=== PATIENT | female | born 1975 | race Caucasian/White ===

== ENCOUNTER 2023-11-03 09:15 | Outpatient (CLI) | payer MEDICAID, SELFPAY ==
--- NOTE | 2023-11-03 09:20 | USR_ITS ---
PROCEDURE INFORMATION: Exam: US Abdomen Complete Exam date and time: 11/03/2023 9:29 AM Age: 48 years old Clinical indication: Screening exam; Other: Palp area; Additional info: Subcutaneous nodule TECHNIQUE: Imaging protocol: Real-time ultrasound of the abdomen with image documentation. Complete exam. COMPARISON: No relevant prior studies available. FINDINGS: Liver: The liver measures 16.4 cm in the midclavicular plane. No mass. The liver demonstrates increased echogenicity with decreased visualization of periportal fat without sound attenuation. Gallbladder: Normal. No gallstones. There is no gallbladder wall thickening. Biliary ducts: The common bile duct measures 0.4 mm. No ductal calculi as visualized. Pancreas: The pancreas head and neck are unremarkable. The remainder of the gland is obscured by bowel gas. Right kidney: The right kidney measures 10.9 x 4.7 x 4.0 cm. Unremarkable. Left kidney: The left kidney measures 11.8 x 4.6 x 5.4 cm. Unremarkable. Spleen: The spleen measures 9.9 x 4.6 x 5.3 cm. Unremarkable. Soft tissues: Soft tissue imaging in the region of interest (right) demonstrates a mildly hyperechoic noncalcified subcutaneous lesion measuring 2.5 x 1.2 x 1.8 cm. No color Doppler hypervascularity. A 2nd similar focus (left) is identified measuring 1.8 x 1.2 x 1.8 cm. Aorta: The proximal abdominal aorta measures 1.7 cm. Inferior vena cava: Unremarkable upper abdominal IVC. US/US abdomen complete* [id number] IMPRESSION: 1. Two subcutaneous foci in the bilateral anterior abdominal wall, likely representing benign soft tissue lipomas. 2. Otherwise, no acute abdominal abnormality identified. 3. Fatty infiltration of the liver.
== END 2023-11-03 09:16 | disposition home or self-care (01) ==
LOC: RAD 09:17
PROVIDERS: PCP Family Medicine; Visit Provider Family Medicine
DX: R22.9 Localized swelling, mass and lump, unspecified (principal)
CPT/HCPCS: 76700

== ENCOUNTER 2023-11-17 11:04 | Outpatient (CLI) | payer MEDICAID, SELFPAY ==
--- NOTE | 2023-11-17 11:09 | MM_ITS ---
WS: [id number] BILATERAL 3D TOMOSYNTHESIS DIGITAL SCREENING MAMMOGRAPHY WITH CAD CLINICAL INFORMATION: SCREEN HISTORY: Screening mammogram. No current complaints. COMPARISON: 2021 TECHNIQUE: Bilateral CC and MLO views. FINDINGS: The breasts are composed of heterogeneous fibroglandular density tissue, which can limit the detectio n of small underlying mass lesions. No suspicious mass, asymmetry, calcifications, or architectural d istortion. No evidence of malignancy. Incidental punctate and lucent centered calcifications. IMPRESSION: MM/[place] [id number] BI-RADS: 2-Benign FOLLOW UP: 1 Year Follow-up Recommend return to annual screening mammography.
== END 2023-11-17 11:05 | disposition home or self-care (01) ==
LOC: RAD 11:04
PROVIDERS: Visit Provider Family Medicine
DX: Z12.31 Encounter for screening mammogram for malignant neoplasm of breast (principal)
CPT/HCPCS: 77063; 77067

== ENCOUNTER 2023-12-11 17:57 | Emergency (ER) | payer MEDICAID, SELFPAY ==
[2023-12-11 18:44] VITALS: BP 156/96; PULSE 84; RESP 15; TEMP 37.9; O2SAT 94; BMI 29.2
[2023-12-11 20:21] LABS: Basophils % 0.4 %; Eosinophils # 0.3 10^3/uL (0.0-0.8); Eosinophils % 3.4 %; Hematocrit 40.6 % (36-47); Lymphocytes # 3.2 10^3/uL (0.8-4.8); Lymphocytes % 33.1 %; Mean Corpuscular Hemoglobin 29.2 pg (27-33); Mean Corpuscular Volume 85.8 fl (85-98); Mean Platelet Volume 9.2 fL (7.4-10.4); Monocytes # 0.8 10^3/uL (0.2-0.9); Monocytes % 8.1 %; Neutrophils # 5.28 10^3/uL (1.8-7.7); Neutrophils % 54.9 %; Nucleated Red Blood Cells % 0 %; Platelet Count 307 10^3/cmm (157-399); Red Blood Count 4.73 10^6/uL (3.85-5.65); Red Cell Distribution Width 13.4 % (12.1-15.1); White Blood Count 9.63 10^3/uL (3.29-11.43)
[2023-12-11 20:41] LABS: Alanine Aminotransferase 25 U/L (0-33); Albumin Level 4.2 g/dL (3.5-5.2); Alkaline Phosphatase 120 U/L (35-105); Anion Gap 15.1 (5-19); Aspartate Amino Transferase 18 U/L (0-32); Blood Urea Nitrogen 20 mg/dL (6-20); Calcium 9.5 mg/dL (8.5-10.5); Carbon Dioxide 24 mmol/L (22-29); Chloride 105 mmol/L (98-107); Globulin 2.9 g/dL (1.3-4.6); Glomerular Filtration Rate 88.9 mL/min (90-130); Glucose 133 mg/dL (65-115); Osmolality Calculated 295 mOsm/kg (285-295); Potassium 4.1 mmol/L (3.5-5.1); Sodium 140 mmol/L (136-145); Total Bilirubin 0.2 mg/dL (0.15-1.2); Total Protein 7.1 g/dL (6.6-8.7)
[2023-12-11 20:43] LABS: HCG, Serum Qual Negative (Negative)
--- NOTE | 2023-12-11 20:47 | USR_ITS ---
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 Not taking hormones. Only surgery = tubal lig 1999; Additional info: Post menopausal vaginal bleeding TECHNIQUE: Imaging protocol: Real-time complete transabdominal and transvaginal pelvic ultrasound with image documentation. Transvaginal imaging was used for better evaluation of the endometrium, adnexa, and/or cervix. COMPARISON: US abdomen complete* [id number] 11/03/2023 9:29 AM FINDINGS: Uterus: Uterus measures 8.1 cm x 4.6 cm x 4.1 cm. The endometrial stripe measures 10 mm. Three uterine fibroids, largest is 2 x 0.9 x 1 cm. The endometrial stripe measures 10 mm. Right ovary/adnexa: Right ovary measures 1.9 cm x 2.1 cm x 1.2 cm. Right ovarian volume is 2.6 mL. Normal right ovarian blood flow. Left ovary/adnexa: Left ovary measures 1.9 cm x 1.9 cm x 1.2 cm. Left ovarian volume is 2.3 mL. Normal left ovarian blood flow. Intraperitoneal space: No intraperitoneal fluid. Urinary bladder: Normal. US/US pelvic complete* [id number] IMPRESSION: 1. Three uterine fibroids, largest is 2 x 0.9 x 1 cm. 2. The endometrial stripe measures 10 mm.
--- NOTE | 2023-12-11 20:50 | ED_ITS ---
HPI - Female Genitourinary 2 General: Chief complaint: Vaginal Bleeding Stated complaint: vaginal bleeding Time Seen by Provider: 12/11/23 20:44 History of Present Illness: Patient presents to the ER with complaints of heavy vaginal bleeding. Patient states she has not had a period since 2013 but within the last 24 hours it feels like she started her period with heavy vaginal bleeding that required 1 super tampon every hour and 1 super pad every hour. Patient called her PCP who told her to come in to be evaluated. Patient denies any nausea vomiting fevers chills but does say she has low pelvic cramps and back pain. Review of Systems 2 General: Reports: 10 or more systems reviewed and unremarkable except in HPI and below Physical Exam 2 Const: COMMON NORMALS: no acute distress, average body habitus, patient oriented x3, no limitations, healthy appearing, alert and well nourished HENMT: COMMON NORMALS: normocephalic, atraumatic, hearing grossly normal bilaterally, external ears normal, Normal external nose present, moist oral mucous membranes and oropharynx normal HEAD & SCALP: normocephalic and atraumatic NOSE: Normal external nose present EXTERNAL EAR: Yes external ears normal Neck/C-Spine: COMMON NORMALS: no JVD Chest: COMMONS NORMALS: normal inspection of the chest and normal palpation of entire chest wall Resp: COMMON NORMALS: normal respiratory effort, No retractions, No use of accessory muscles and clear to auscultation bilaterally AUSCULTATION: clear to auscultation bilaterally Cardio: COMMON NORMALS: no JVD, regular rate, regular rhythm, S1 normal heart sound present, S2 normal heart sound present, No gallops present (Cardio), No clicks present (Cardio), No murmurs present (Cardio) and No rub (Cardio) R ATE: regular rate RHYTHM: regular rhythm HEART SOUNDS: S1 normal heart sound present and S2 normal heart sound present GI: COMMON NORMALS: Normal to inspection, nondistended, normoactive bowel sounds present, Soft to palpation, non-tender, No hepatosplenomegaly present and no masses PALPATION: Yes Soft to palpation and Yes No hepatosplenomegaly present Neuro: COMMON NORMALS: patient oriented x3 SENSORIUM/ORIENTATION: Yes alert Course 2 Vital Signs: Vital signs: Vital Signs Temperature 100.2 F H 12/11/23 18:44 Pulse Rate 76 12/11/23 23:14 Respiratory Rate 15 12/11/23 18:44 Blood Pressure 121/72 12/11/23 23:14 Pulse Oximetry 97 12/11/23 23:14 Oxygen Delivery Me thod Room Air 12/11/23 18:44 MDM - Female Medical Decision Making Physical dam was performed lab work was obtained as well as pelvic ultrasound. These were essentially unremarkable except for the pelvic ultrasound showed 3 uterine fibroids and endometrial stripe measuring 10 mm. These results was discussed with the patient will be discharged from the emergency room and instructed to follow-up with her [facility] for definitive treatment. Differential Diagnosis Unlikely abdominal pain, acute appendicitis, calculus of kidney, constipation, diverticulitis, endometriosis, gastroenteritis, pancreatitis or small bowel obstruction Medical Records I reviewed the patient's medical records. Lab Data I reviewed the patient's lab results. 12/11/23 20:00 12/11/23 20:00 Radiology Impressions Pelvis Ultrasound 12/11/23 20:47 IMPRESSION: 1. Three uterine fibroids, largest is 2 x 0.9 x 1 cm. 2. The endometrial stripe measures 10 mm. Laboratory Results WBC 9.63 10^3/uL (3.29-11.43) 12/11/23 20:00 RBC 4.73 10^6/uL (3.85-5.65) 12/11/23 20:00 Hgb 13.80 g/dL (11.27-16.99) 12/11/23 20:00 Hct 40.6 % (36-47) 12/11/23 20:00 MCV 85.8 fl (85-98) 12/11/23 20:00 MCH 29.2 pg (27-33) 12/11/23 20:00 MCHC 34.0 g/dL (30-55) 12/11/23 20:00 RDW 13.4 % (12.1-15.1) 12/11/23 20:00 Plt Count 307 10^3/cmm (157-399) 12/11/23 20:00 MPV 9.2 fL (7.4-10.4) 12/11/23 20:00 Neut % (Auto) 54.9 % 12/11/23 20:00 Lymph % (Auto) 33.1 % 12/11/23 20:00 [place] % (Auto) 8.1 % 12/11/23 20:00 Eos % (Auto) 3.4 % 12/11/23 20:00 Baso % (Auto) 0.4 % 12/11/23 20:00 Neut # (Auto) 5.28 10^3/uL (1.8-7.7) 12/11/23 20:00 Lymph # (Auto) 3.2 10^3/uL (0.8-4.8) 12/11/23 20:00 [place] # (Auto) 0.8 10^3/uL (0.2-0.9) 12/11/23 20:00 Eos # (Auto) 0.3 10^3/uL (0.0-0.8) 12/11/23 20:00 Baso # (Auto) 0.0 10^3/uL (0.0-0.1) 12/11/23 20:00 Nucleated RBC % (auto) 0 % 12/11/23 20:00 Nucleated RBCs # 0.0 /100WBC 12/11/23 20:00 Sodium 140 mmol/L (136-145) 12/11/23 20:00 Potassium 4.1 mmol/L (3.5-5.1) 12/11/23 20:00 Chloride 105 mmol/L (98-107) 12/11/23 20:00 Carbon Dioxide 24 mmol/L (22-29) 12/11/23 20:00 Anion Gap 15.1 (5-19) 12/11/23 20:00 BUN 20 mg/dL (6-20) 12/11/23 20:00 Creatinine 0.7 mg/dL (0.5-0.9) 12/11/23 20:00 GFR Calculation 88.9 mL/min (90-130) L 12/11/23 20:00 Glucose 133 mg/dL (65-115) H 12/11/23 20:00 Calculated Osmolality 295 mOsm/kg (285-295) 12/11/23 20:00 Calcium 9.5 mg/dL (8.5-10.5) 12/11/23 20:00 Total Bilirubin 0.2 mg/dL (0.15-1.2) 12/11/23 20:00 AST 18 U/L (0-32) 12/11/23 20:00 ALT 25 U/L (0-33) 12/11/23 20:00 Alkaline Phosphatase 120 U/L (35-105) H 12/11/23 20:00 Total Protein 7.1 g/dL (6.6-8.7) 12/11/23 20:00 Albumin 4.2 g/dL (3.5-5.2) 12/11/23 20:00 Globulin 2.9 g/dL (1.3-4.6) 12/11/23 20:00 HCG, Qual Negative (Negative) 12/11/23 20:00 All radiology interpretation(s) finalized by discharge Discharge Plan Discharge Patient Disposition: Home Condition: Stable Prescriptions: No Action azithromycin 250 mg tablet See Rx Instructions PO .COMPLEX Qty: 6 0RF Rx Instructions: take 500 mg today (day 1), then 250 mg for 4 days (days 2-5) PO prednisone 20 mg tablet 20 mg PO DAILY 5 Days Qty: 5 0RF albuterol sulfate [Ventolin HFA] 90 mcg/actuation HFA aerosol inhaler 2 puff inhalation Q6H PRN (Reason: shortness of breath or wheezing) Qty: 8.5 0RF Discharge Orders: Discharge ED (Routine); Ordered 12/11/23 Ordered By: Eliazar Alonso Referrals: Amaya Cartagena DO [Primary Care Provider] - 1 week Patient Instructions: Uterine Fibroids (ED) Activity Restrictions/Additional Instructions: The blood work you had performed in ER was unremarkable, they pelvic ultrasound showed you have uterine fibroids. This is more than likely the cause for your bleeding. Please follow-up with your [facility] for definitive treatment. Coding Level of Care Code ED Director Client Services for Celena Pike
[2023-12-11 22:01] VITALS: PULSE 86; O2SAT 97
[2023-12-11 22:20] VITALS: BP 150/92; PULSE 78; O2SAT 96
[2023-12-11 23:14] VITALS: BP 121/72; PULSE 76; O2SAT 97
== END 2023-12-11 23:17 | disposition home or self-care (01) ==
PROVIDERS: Emergency Medicine; Emergency Provider Emergency Medicine; PCP Family Medicine
DX: N93.9 Abnormal uterine and vaginal bleeding, unspecified (principal)
CPT/HCPCS: 36415; 76856; 80053; 84703; 85025; 99284

== ENCOUNTER → 2024-01-25 10:43 | Outpatient (BNVA) | payer MEDICAID, SELFPAY | PROVIDERS: PCP Family Medicine; Referring Provider Family Medicine; Visit Provider Obstetrics & Gynecology | DX: N95.0 Postmenopausal bleeding (principal); D25.9 Leiomyoma of uterus, unspecified; D25.0 Submucous leiomyoma of uterus; N84.1 Polyp of cervix uteri | CPT/HCPCS: 83001; 84443; 85025; 88305 ==

== ENCOUNTER 2024-04-09 12:22 | Observation (INO) | payer MEDICAID, SELFPAY ==
--- NOTE | 2024-04-08 09:02 | P.ANESASSM_ITS ---
Pre-Anesthetic Assessment Height/Weight: Height 1.63 m Operation Date: 04/09/24 07:00 Proposed Procedures p Total Vaginal Hysterectomy 72322, N95.0, D25.9(Not Applicable) - Porfirio Rajput MD s Salpingo-Oophorectomy (Vaginal)(Bilateral) - Porfirio Rajput MD Familial anesthetic complications: None Was Beta Mariano taken within 24 hours: N/A Was Clonidine taken within 24 hours: N/A Last intake: > 8hrs Social Tobacco and No alcohol Exam alert, oriented x 3, clear to auscultation bilaterally and regular rate & rhythm Airway Mallampati: Class II Dentition: false Metabolic Hyperlipidemia Anesthetic Plan ASA status: 2 Anesthesia: General Risk of > 500 ml blood loss (7ml/kg in children): No Medications/Allergies Home Medications Medication Instructions Recorded Confirmed Last Taken Type albuterol sulfate 90 mcg/actuation 2 puff inhalation Q6H PRN 10/02/23 04/08/24 Unknown Rx aerosol inhaler (Ventolin HFA) shortness of breath or wheezing #8.5 grams aspirin 500 mg-acetaminophen 325 1 ea PO PRN PRN pain 04/08/24 04/08/24 04/07/24 History mg-caffeine 65 mg oral powder pack buspirone 10 mg tablet 10 mg PO TID 04/08/24 04/08/24 04/08/24 History fluoxetine 40 mg capsule 40 mg PO DAILY 04/08/24 04/08/24 04/08/24 History simvastatin 40 mg tablet 40 mg PO DAILY 04/08/24 04/08/24 04/08/24 History Allergies Allergy/AdvReac Type Severity Reaction Status Date / Time tramadol [From [facility]] Allergy ADR-Itching Verified 04/08/24 08:03 [facility] Anesthesia Family History Mother Diabetes Hypertension Thyroid disease Hypercholesteremia Father Heart disease Hypercholesteremia Brother Hypercholesteremia Grandmother Hypercholesteremia Grandfather Hypercholesteremia Denies family history of Colon cancer Ovarian cancer Prostate cancer Breast cancer Uterine cancer Stroke Data Anesthesia Cardiac Studies: No Data to Display
[2024-04-09] VITALS (20 sets, daily range): BP systolic 104–157; BP diastolic 65–92; PULSE 64–83; RESP 9–18; TEMP 36.1–36.9; O2SAT 92–98; BMI 36.2
[2024-04-09] MEDS: sodium chloride 0.9% 500 ML IV (06:32)
[2024-04-09] MEDS: scopolamine 1.5 Patch 1 PATCH TRANSDERMA (06:32)
[2024-04-09 06:35] LABS: Basophils # 0.1 10^3/uL (0.0-0.1); Basophils % 0.7 %; Eosinophils # 0.3 10^3/uL (0.0-0.8); Eosinophils % 3.1 %; Hematocrit 42.8 % (36-47); Lymphocytes # 2.8 10^3/uL (0.8-4.8); Lymphocytes % 33.5 %; Mean Corpuscular HGB Conc 33.2 g/dL (30-55); Mean Corpuscular Hemoglobin 28.7 pg (27-33); Mean Corpuscular Volume 86.5 fl (85-98); Mean Platelet Volume 9.5 fL (7.4-10.4); Monocytes # 0.8 10^3/uL (0.2-0.9); Monocytes % 9.3 %; Neutrophils # 4.42 10^3/uL (1.8-7.7); Neutrophils % 53.3 %; Nucleated Red Blood Cells % 0 %; Platelet Count 291 10^3/cmm (157-399); Red Blood Count 4.95 10^6/uL (3.85-5.65); Red Cell Distribution Width 13.9 % (12.1-15.1)
[2024-04-09 06:43] LABS: OR HCG Qualitative Urine Negative (Negative)
--- NOTE | 2024-04-09 06:49 | P.ANESUD_ITS ---
Pre-Anesthetic Update Pre-Anesthetic Assessment: Date of Surgery/Procedure: 04/09/24 Preop Jeanne gnosis: Postmenopausal bleeding, uterine fibroid, endocervical polyp Proposed Procedure: Operation Date: 04/09/24 07:00 Proposed Procedures p Total Vaginal Hysterectomy 00383, N95.0, D25.9(Not Applicable) - Porfirio Rajput MD s Salpingo-Oophorectomy (Vaginal)(Bilateral) - Porfirio Rajput MD Any changes to Pre-Anesthetic Assessment?: No Last Intake: Intake Last Liquid Date 04/08/24 Last Liquid Time 22:00 Last Solid Date 04/08/24 Last Solid Time 20:00 Labs Last 48hrs: Short CBC 04/09/24 Range/Units 06:20 WBC 8.30 (3.29-11.43) 10^ 3/uL Hgb 14.20 (11.27-16.99) g/ dL Hct 42.8 (36-47) % MCV 86.5 (85-98) fl Plt Count 291 (157-399) 10^3/c mm Neut % (Auto) 53.3 % Neut # (Auto) 4.42 (1.8-7.7) 10^3/u L Vitals: Temperature 97 F L 04/09/24 06:04 Temperature Source Temporal Artery S can 04/09/24 06:04 Pulse Rate 64 04/09/24 06:04 Respiratory Rate 18 04/09/24 06:04 Blood Pressure 157/89 04/09/24 06:04 Blood Pressure Selena n 111 04/09/24 06:04 Pulse Oximetry 97 04/09/24 06:04 Oxygen Delivery Me thod Room Air 04/09/24 06:06 Exam: Pre-Anes Outpt Exam: alert, oriented x 3, clear to auscultation bilate rally and regular rate & rhythm Cardiac Studies: No Data to Display
[2024-04-09 06:52] LABS: Albumin Level 4.3 g/dL (3.5-5.2); Alkaline Phosphatase 117 U/L (35-105); Anion Gap 15.3 (5-19); Aspartate Amino Transferase 21 U/L (0-32); Blood Urea Nitrogen 17 mg/dL (6-20); Calcium 8.6 mg/dL (8.5-10.5); Carbon Dioxide 25 mmol/L (22-29); Chloride 104 mmol/L (98-107); Creatinine Clr Calc Pharmacy 109.1237; Globulin 2.8 g/dL (1.3-4.6); Glomerular Filtration Rate 88.9 mL/min (90-130); Glucose 121 mg/dL (65-115); Osmolality Calculated 293 mOsm/kg (285-295); Potassium 4.3 mmol/L (3.5-5.1); Sodium 140 mmol/L (136-145); Total Bilirubin 0.3 mg/dL (0.15-1.2); Total Protein 7.1 g/dL (6.6-8.7)
--- NOTE | 2024-04-09 06:55 | W.PM.OPSUD ---
Surgery/Procedure H&P Update DATE OF PROCEDURE: April 09, 2024 DATE H&P PERFORMED: 04/08/24 H&P UPDATE INFORMATION: I have reviewed H&P completed within last 30 days, I have examined patient prior to procedure and No changes to prior documentation PREOP DIAGNOSIS: Postmenopausal bleeding, uterine fibroid, endocervical polyp PLANNED PROCEDURE: Operation Date: 04/09/24 07:00 Proposed Procedures p Total Vaginal Hysterectomy 82707, N95.0, D25.9(Not Applicable) - Porfirio Rajput MD s Salpingo-Oophorectomy (Vaginal)(Bilateral) - Porfirio Rajput MD
[2024-04-09 06:59] LABS: Add Urine Culture? No; Add Urine Microscopic? YES; Bacteria Urine 2+ /hpf; Bilirubin Urine 1+ (Negative); Blood Urine Neg (Negative); Glucose Urine UA Norm (Normal); Ketones Urine 1+ (Negative); Leukocyte Esterase Urine Negative (Negative); Mucus Urine 2+ /hpf; Nitrate Urine Negative (Negative); Protein Urine Neg (Negative); RBC Urine 0-4 /hpf (0-2); Specific Gravity, Urine 1.025 (1.005-1.030); Urine Appearance Cloudy (CLEAR); Urine Color Yellow (Yellow); Urobilinogen Urine 1 mg/dL (Negative); WBC Urine 0-4 /hpf (0-5); pH Urine 5 (5-7)
[2024-04-09] MEDS: ceFOXitin 2,000 MG in sodium chloride 0.9% (plus) 50 ML 100 MG IV (07:00)
[2024-04-09] MEDS: sodium chloride 0.9% 1,000 ML 30 ML IV (07:01)
[2024-04-09 07:03] LABS: Alanine Aminotransferase 31 U/L (0-33)
[2024-04-09] MEDS: lidocaine-epi 2% PF 1:200,000 20 mL SDV XX (07:57)
--- NOTE | 2024-04-09 08:52 | PM.OP ---
Operative Report Date of procedure: April 09, 2024 Pre-op diagnosis: Uterine fibroid Postmenopausal bleeding Post-op diagnosis: same Post-op findings: Normal size uterus Procedure done: Total vaginal hysterectomy with bilateral salpingo-oophorectomy Specimens removed/disposition: Uterus Left and right fallopian tube and ovaries Surgeon: Porfirio Rajput MD Estimated blood loss (mL): 50 IV fluids (mL): 600 Urine output (mL): 50 Complications: None Procedure: After informed consent and risks, benefits, indications and alternatives reviewed with the patient was taken to the operating room. The patient was placed in dorsal lithotomy position prepped, and draped in the usual sterile fashion. The pre-procedure timeout verifying the correct patient, procedure, site and side, could not requirements was performed and acknowledge by the OR team. A Kamara catheter was placed. A Bookwalter vaginal retractor was placed into the vagina in usual manner visualize the cervix. Cervix was grasped with a single tooth tenaculum and circumferentially infiltrated with 2% lidocaine with epinephrine. Then cervix was circumferentially incised with bovie and the bladder was dissected off the pubovesical cervical fascia anteriorly with a sponge stick and Metzenbaum scissors. The anterior peritoneal reflection was identified and the anterior cul-de-sac was entered sharply with Metzenbaum scissors. The same procedure was performed posteriorly and a posterior colpotomy was made through the posterior cul-de-sac space without difficulty and the posterior blade of the Bookwalter vaginal retractor was advanced posteriorly into the cul-de-sac. At this time, the left and right uterosacral ligaments were isolated and ligated with 0 Vicryl. The LigaSure device was placed over the uterosacral ligaments on either side and was then used in a serial fashion up through the cardinal ligaments bilaterally cross-clamped, cut, and sealed with the LigaSure device. Finally, the uterine arteries were cross-clamped, cut, sealed and ligated with the LigaSure device. Hemostasis was assured. The broad ligaments were then serially clamped, sealed and cut with the LigaSure device on both sides. Excellent hemostasis was visualized. Both cornua were clamped, sealed and cut with the LigaSure device. Then the pedicles were then suture ligated with excellent hemostasis. The uterus was excised and submitted for pathologic evaluation. No other abnormalities were noted in the pelvic cavity. Then the right side Infundibular ligament was identified. The ureter was confirmed along the pelvic side wall and peristalsis was noted. The LigaSure device was then used to clamp, sealed and transcepted at middistance, again being sure to be clear of the ureter and the fallopian tube and ovary were removed. The same process was then repeated on the left side. Good hemostasis was assure on both sides. The peritoneum was then closed in a pursestring fashion with 0 Vicryl suture. Bludigo was given IV. The vaginal cuff angles were closed with [id number] #0 Vicryl suture on both sides and transfixed with the ipsilateral cardinal and uterosacral ligaments. The remainder of the vaginal cuff was closed with #0 Vicryl in a running locked fashion. At this time, instruments were removed from the vagina at hemostasis assured. Kamara catheter was then noted yielding clear blue urine. The patient was taken out of dorsal lithotomy position and awakened from the general anesthesia. The patient tolerated the procedure well and was taken to the PACU recovery room in a stable condition. Sponge, lap, needle and instruments counts were correct x3.
[2024-04-09] MEDS: fentaNYL 50 mcg/mL INJ 2mL IVP (09:04)
[2024-04-09] MEDS: HYDROcodone-acetaminophen 5-325 mg Tablet 1 TAB PO (10:15)
[2024-04-09] MEDS: atorvastatin 40 mg Tablet 20 MG PO (13:02)
[2024-04-09] MEDS: fluoxetine 20 mg Capsule 40 MG PO (13:02)
[2024-04-09] MEDS: dextrose 5%-lactated ringers 1,000 ML 125 ML IV ×2 (13:03→21:04)
[2024-04-09] MEDS: ketorolac 30 mg/mL INJ IVP ×2 (13:17→18:47)
--- NOTE | 2024-04-09 13:27 | ANE.PACU2 ---
Inpatient post-anesthesia follow up: Airway intact: Yes Vital signs: Temperature 98.0 F Pulse Rate 70 Respiratory Rate 18 Blood Pressure 135/87 Pulse Oximetry 92 Oxygen Delivery Me thod Room Air Oxygen Flow Rate 8 Fraction of Inspir ed Oxygen Hydration adequate: Yes Nausea and vomiting: No Pain level: 1 Mental status: Baseline
[2024-04-09] MEDS: BuSPIRONE 10 mg Tablet PO ×2 (16:42→21:03)
[2024-04-10] VITALS (7 sets, daily range): BP systolic 108–116; BP diastolic 70–75; PULSE 68–73; RESP 16–18; TEMP 36.6–37.1; O2SAT 92–95
--- NOTE | 2024-04-10 00:07 | PC.NURSE ---
Medication rounding, patient wanted SCD's removed, stated they were bothering legs and making her hot. pros and cons discussed with patient. patient elected to remove. left at bedside if patient changes mind about wearing.
[2024-04-10] MEDS: ketorolac 30 mg/mL INJ IVP ×2 (01:10→06:54)
[2024-04-10 01:35] LABS: Hematocrit 36.3 % (36-47); Mean Corpuscular HGB Conc 33.9 g/dL (30-55); Mean Corpuscular Hemoglobin 29.1 pg (27-33); Mean Platelet Volume 9.4 fL (7.4-10.4); Platelet Count 245 10^3/cmm (157-399); Red Blood Count 4.22 10^6/uL (3.85-5.65); Red Cell Distribution Width 13.6 % (12.1-15.1); White Blood Count 11.92 10^3/uL (3.29-11.43)
[2024-04-10] MEDS: alum-mag-hydroxide-sime 30 mL UDC PO (05:04)
[2024-04-10] MEDS: dextrose 5%-lactated ringers 1,000 ML 125 ML IV (05:04)
[2024-04-10] MEDS: HYDROcodone-acetaminophen 5-325 mg Tablet PO ×2 (08:57→17:34)
[2024-04-10] MEDS: simethicone 80 mg Chew PO (08:57)
[2024-04-10] MEDS: fluoxetine 20 mg Capsule 40 MG PO (08:58)
[2024-04-10] MEDS: ibuprofen 800 mg tablet PO ×2 (08:58→17:32)
[2024-04-10] MEDS: BuSPIRONE 10 mg Tablet PO ×2 (08:58→15:34)
[2024-04-10] MEDS: atorvastatin 40 mg Tablet 20 MG PO (08:58)
--- NOTE | 2024-04-10 14:34 | PM.OBGYDC ---
Discharge Providers TRANSFERRER Date of Admission: 04/09/24 12:22 Date of Discharge: 04/10/24 Attending Provider at Admission: Porfirio Rajput MD Attending Provider at Discharge: Porfirio Rajput MD Primary Care Provider: Amaya Cartagena DO Reason for Visit Reason for Visit: D25.9, N95.0 Hospital Course Hospital Course Mrs. Benoit 48-year-old female admitted for planned total vaginal hysterectomy with bilateral salpingo-oophorectomy. The procedure was performed without complication. Overnight observation uneventful. Tolerating diet well. Ambulating without difficulty. She was counseled regarding pelvic rest for 6 weeks (no sex, no tampons, no vaginal douches). Return to the emergency room if any fever, increased bleeding or pain. Physical Exam Narrative: GA: Alert and oriented ?3. HEENT: WNL. Heart: Regular rate and rhythm. Lungs: Clear to auscultation bilaterally. Abdomen: Bowel sounds present,minimal tenderness. [employer]: spotting bleeding. Extremities: No edema, no cyanosis, no calves pain. Urinary Catheter Management: Kamara: Cath Placed During This Visit: yes, but has since been removed by the nurse Reason for Continuing Indwelling Catheter: Decision to DC Catheter Urinary Catheter Date of Insertion: 04/09/24 Urinary Catheter Time of Insertion: 07:29 Date Urinary Catheter Removed: 04/10/24 Time Urinary Catheter Discontinued: 05:21 History History History 3 Term 2 0 Miscarriages/Ectopic 1 Living Children 2 Discharge Data Studies Completed and Pending Pending at discharge Category Date Time Status Pathology: Surgical [PTH] Routine Pth 04/09/24 08:13 Received Laboratory Results WBC 11.92 10^3/uL (3.29-11.43) H 04/10/24 01:28 RBC 4.22 10^6/uL (3.85-5.65) 04/10/24 01:28 Hgb 12.30 g/dL (11.27-16.99) 04/10/24 01:28 Hct 36.3 % (36-47) 04/10/24 01:28 MCV 86.0 fl (85-98) 04/10/24 01:28 MCH 29.1 pg (27-33) 04/10/24 01:28 MCHC 33.9 g/dL (30-55) 04/10/24 01:28 RDW 13.6 % (12.1-15.1) 04/10/24 01:28 Plt Count 245 10^3/cmm (157-399) 04/10/24 01:28 MPV 9.4 fL (7.4-10.4) 04/10/24 01:28 Neut % (Auto) 53.3 % 04/09/24 06:20 Lymph % (Auto) 33.5 % 04/09/24 06:20 Garrard % (Auto) 9.3 % 04/09/24 06:20 Eos % (Auto) 3.1 % 04/09/24 06:20 Baso % (Auto) 0.7 % 04/09/24 06:20 Neut # (Auto) 4.42 10^3/uL (1.8-7.7) 04/09/24 06:20 Lymph # (Auto) 2.8 10^3/uL (0.8-4.8) 04/09/24 06:20 Garrard # (Auto) 0.8 10^3/uL (0.2-0.9) 04/09/24 06:20 Eos # (Auto) 0.3 10^3/uL (0.0-0.8) 04/09/24 06:20 Baso # (Auto) 0.1 10^3/uL (0.0-0.1) 04/09/24 06:20 Nucleated RBC % (auto) 0 % 04/09/24 06:20 Nucleated RBCs # 0.0 /100WBC 04/09/24 06:20 Sodium 140 mmol/L (136-145) 04/09/24 06:20 Potassium 4.3 mmol/L (3.5-5.1) 04/09/24 06:20 Chloride 104 mmol/L (98-107) 04/09/24 06:20 Carbon Dioxide 25 mmol/L (22-29) 04/09/24 06:20 Anion Gap 15.3 (5-19) 04/09/24 06:20 BUN 17 mg/dL (6-20) 04/09/24 06:20 Creatinine 0.7 mg/dL (0.5-0.9) 04/09/24 06:20 GFR Calculation 88.9 mL/min (90-130) L 04/09/24 06:20 Glucose 121 mg/dL (65-115) H 04/09/24 06:20 Calculated Osmolality 293 mOsm/kg (285-295) 04/09/24 06:20 Calcium 8.6 mg/dL (8.5-10.5) 04/09/24 06:20 Total Bilirubin 0.3 mg/dL (0.15-1.2) 04/09/24 06:20 AST 21 U/L (0-32) 04/09/24 06:20 ALT 31 U/L (0-33) 04/09/24 06:20 Alkaline Phosphatase 117 U/L (35-105) H 04/09/24 06:20 Total Protein 7.1 g/dL (6.6-8.7) 04/09/24 06:20 Albumin 4.3 g/dL (3.5-5.2) 04/09/24 06:20 Globulin 2.8 g/dL (1.3-4.6) 04/09/24 06:20 Urine Color Yellow (Yellow) 04/09/24 06:10 Urine Appearance Cloudy (CLEAR) A 04/09/24 06:10 Urine pH 5 (5-7) 04/09/24 06:10 Ur Specific [place] 1.025 (1.005-1.030) 04/09/24 06:10 Urine Protein Neg (Negative) 04/09/24 06:10 Urine Glucose (UA) Norm (Normal) 04/09/24 06:10 Urine Ketones 1+ (Negative) H 04/09/24 06:10 Urine Blood Neg (Negative) 04/09/24 06:10 Urine Nitrate Negative (Negative) 04/09/24 06:10 Urine Bilirubin 1+ (Negative) H 04/09/24 06:10 Urine Urobilinogen 1 mg/dL (Negative) H 04/09/24 06:10 Ur Leukocyte Esterase Negative (Negative) 04/09/24 06:10 Urine RBC 0-4 /hpf (0-2) H 04/09/24 06:10 Urine WBC 0-4 /hpf (0-5) H 04/09/24 06:10 Ur Squamous Epith Cells 5-10 /hpf (0-5) H 04/09/24 06:10 Amorphous Sediment Not Reportable 04/09/24 06:10 Urine Bacteria 2+ /hpf (NONE) H 04/09/24 06:10 Urine Mucus 2+ /hpf 04/09/24 06:10 Urine HCG, Qual Negative (Negative) 04/09/24 06:10 Blood Type O Positive 04/09/24 06:20 Rho(D) Type Rh positive 04/09/24 06:20 Antibody Screen Positive 04/09/24 06:20 Antibody Identification Warm Auto Antibody 04/09/24 06:20 Cold Antibody Screen Negative 04/09/24 06:20 Vitals Last Vital Signs Temp 98.8 F 04/10/24 11:17 Pulse 73 04/10/24 11:17 Resp 18 04/10/24 11:17 BP 109/72 04/10/24 11:17 Pulse Ox 95 04/10/24 11:17 O2 Del Method Room Air 04/10/24 11:17 O2 Flow Rate 8 04/09/24 08:45 Results Labs OB ([facility]): Blood Type O Positive 04/09/24 Antibody Screen Positive 04/09/24 Hct 36.3 % (36-47) 04/10/24 Hgb 12.30 g/dL (11.27-16.99) 04/10/24 Rho(D) Type Rh positive 04/09/24 Plt Count 245 10^3/cmm (157-399) 04/10/24 TSH 1.10 uIU/mL (0.27-4.20) 01/25/24 FSH 43.3 mIU/mL 01/25/24 HCG, Qual Negative (Negative) 12/11/23 Discharge Plan Discharge Patient Disposition: Home Condition: Stable Prescriptions: New estradiol 1 mg tablet 1 mg PO DAILY Qty: 30 0RF acetaminophen 325 mg capsule 325 mg PO Q4H PRN (Reason: fever or pain) Qty: 60 0RF Continued albuterol sulfate [Ventolin HFA] 90 mcg/actuation HFA aerosol inhaler 2 puff inhalation Q6H PRN (Reason: shortness of breath or wheezing) Qty: 8.5 0RF fluoxetine 40 mg capsule 40 mg PO DAILY simvastatin 40 mg tablet 40 mg PO DAILY buspirone 10 mg tablet 10 mg PO TID vunsaqo-yeivdyvnlfnjk-zoogroqy 500-325-65 mg Powder In Packet 1 ea PO PRN PRN (Reason: pain) Discharge Orders: Discharge Order (Routine); Ordered 04/10/24 Ordered By: Porfirio Rajput Discharge Diet: Usual diet Discharge Activity: Limit activity as instructed Patient Instructions: Salpingo-Oophorectomy (GEN), Vaginal Hysterectomy (GEN), Opioid Safety Activity Restrictions/Additional Instructions: 1. Please call [facility] on next working day to make your post-operative appointment in 2 weeks. 2. Please stay home until you come back to the clinic on first post-hospatilization check up. 3. Please follow instructions on your medications CAREFULLY. 4. If you have abdominal incision, do not cover it unless dressing is necessary because of drainage. OK to shower, but avoid bath. Leave steri-strips until they fall off. If they are still on one week after surgery, you may remove them. 5. If you had vaginal surgery or vaginal repair, Dr. Rajput may instruct you to take SITZ bath. 6. Yellow, blood tinged odorous vaginal discharge is usually normal after hysterectomy or vaginal surgeries. 7. No SEXUAL INTERCOURSE, tampons, or douches until you are completely released from the post-operative care. 8. Avoid constipation by eating right and maybe using some Metamucil or Milk of Magnesia. 9. All prescription refills are given during the working hours. Please do no wait till it runs out. Call the clinic at [phone] before your medication runs out. The clinic will get in touch with your doctor to prescribe medications if necessary. 10. Please remain within 40 mile radius from our hospital because emergencies do happen now and then during the post-operative period. 11. If you have stairs at home, take one step at a time slowly and minimize the number of trips. It helps to stay in one floor for the next few days. No lifting except what you can lift by one hand until you are released from the post-operative care. 12. Driving is discouraged until you are well healed. It may be 3-4 weeks before you feel strong enough to drive. You should be able to turn and look through the rear window without pain and you should be able to push the brake pedal very hard without pain before you drive. No fast rules, but SAFETY should be your primary concern. DO NOT drive if you are on sedating medications such as narcotics. 13. Call the clinic (during working hours) to make urgent appointment or go to the Emergency room, if any of the following occurs: i. Vaginal bleeding becomes heavy, more than a period. ii. Incision becomes red and sore, or drains pus. iii. Your TEMPERATURE is over 100.4F or you have chill. iv. IV site becomes red and swollen (a little ``knot?? is usually OK) v. Persistent nausea and vomiting vi. Persistent constipation or diarrhea vii. Rash or allergic reaction to medications. Discharge Attestations TRANSFERRER Time Spent in Discharge Care*: greater than 30 min Coding Level of Care Code Acute Code for Chg Fwd
== END 2024-04-10 17:57 | disposition home or self-care (01) ==
LOC: MEDSURG 12:22
PROVIDERS: Admitting Provider Obstetrics & Gynecology; PCP Family Medicine; Visit Provider Obstetrics & Gynecology
PROC: (CPT 58262; principal; 2024-04-09 07:00)
PROC: (CPT 58720; 2024-04-09 07:00)
DX: N95.0 Postmenopausal bleeding (principal); D25.9 Leiomyoma of uterus, unspecified; N72 Inflammatory disease of cervix uteri; E78.5 Hyperlipidemia, unspecified
CPT/HCPCS: 58262; 36415; 80053; 81001; 81025; 85025; 85027; 86850; 86870; 86900; 88307; G0378; J0694; J1100; J1200; J1885; J2250; J2405; J2704; J2710; J3010; J3490; J7030; J7040; J7121